=== PATIENT | female | born 1995 | race Caucasian/White ===

== ENCOUNTER 2018-08-05 13:19 | Outpatient (CLI) | payer MEDICAID ==
[~2018-08-05] VITALS: Ht 160 cm; Wt 109.0 kg
--- NOTE | 2018-08-05 13:28 | NUR ---
JOESPH EARLY presented to unit via AMBULATORY from ED, accompanied by S/O, with c/o LEAKING FLUID,NAUSEA. JOESPH EARLY weighed, gowned, voided, and to bed. EFHM and TOCO applied, VS taken. JOESPH EARLY oriented to bed controls, call light, TV, heat, and A/C controls.
[2018-08-05 13:46] VITALS: BP 122/71
[2018-08-05] MEDS ORDERED: SERT50TA2 PO (13:58)
[2018-08-05] MEDS ORDERED: PREN-37 PO (13:58)
[2018-08-05 14:56] LABS: BILIRUBIN,URINE NEGATIVE (NEGATIVE); CLARITY,URINE CLEAR; COLOR,URINE YELLOW; GLUCOSE, URINE (UA) NEGATIVE (NEGATIVE); KETONES,URINE NEGATIVE (NEGATIVE); LEUKOCYTE ESTERASE ,URINE 3+ (NEGATIVE); NITRITE,URINE NEGATIVE (NEGATIVE); PH,URINE 6.5 (5-9); PROTEIN,URINE NEGATIVE (NEGATIVE); UROBILINOGEN,URINE NORMAL (NORMAL)
[2018-08-05 15:14] LABS: BACTERIA,URINE TRACE /HPF; RBC,URINE 0-2 /HPF
--- NOTE | 2018-08-05 15:22 | NUR ---
DR. HINTON NOTIFIED OF PT'S ARRIVAL, 22 Y/O, [id number], 35-3/7 WKS, C/O LEAKING & NAUSEA, AMNIO NEG, SVE, REVIEW OF STRIP, UA RESULTS. NEW ORDERS RECEIVED.
--- NOTE | 2018-08-05 15:23 | NUR ---
REFER TO LABOR FLOW SHEET.
--- NOTE | 2018-08-05 15:37 | NUR ---
ROOM SERVICE DELIVERED TRAY TO PT.
--- NOTE | 2018-08-05 15:55 | NUR ---
DISCHARGE INSTRUCTIONS PROVIDED AND REVIEWED WITH PT, PT VERBALIZES UNDERSTANDING AND DENIES ANY QUESTIONS AT THIS TIME. PAPER SIGNED.
--- NOTE | 2018-08-05 15:56 | NUR ---
PT DISCHARGED FROM [facility] TO PERSONAL AUTO VIA AMBULATORY IN STABLE CONDITION ACC BY S/O.
--- NOTE | 2018-08-08 12:48 | Physician Query-Final Dx ---
BOO JEREZ 08/08/18 1248: Final Diagnosis Give Final Diagnosis Please give Final Diagnosis Dr Gillespie Please give a final diagnosis and please include the weeks of gestation thank you LEXI GILLESPIE MD 08/14/18 1832: Final Diagnosis Give Final Diagnosis Third Trimester 35 week gestation Leaking fluid Vaginal discharge BOO JEREZ Aug 08, 2018 12:48 LEXI GILLESPIE MD Aug 14, 2018 18:32
== END 2018-08-05 15:56 | disposition home or self-care (01) ==
LOC: WSo 13:19 → LDRP 13:19 → WSo 15:56
PROVIDERS: ATTEND Family Medicine
DX: O99.89 Other specified diseases and conditions complicating pregnancy, childbirth and the puerperium (principal); N89.8 Other specified noninflammatory disorders of vagina; Z3A.35 35 weeks gestation of pregnancy
CPT/HCPCS: 81000; 99213

== ENCOUNTER 2018-08-29 19:05 | Inpatient (IN) | payer MEDICAID ==
[~2018-08-29] VITALS: Ht 160 cm; Wt 113.4 kg
[~2018-08-29 19:05] MED LIST: PREN-37 PO; SERT50TA2 PO
--- NOTE | 2018-08-29 19:05 | NUR ---
JOESPH EARLY presented to unit via AMBULATORY from ED, accompanied by S/O, with c/o INDUCTION. JOESPH EARLY weighed, gowned, voided, and to bed. EFHM and TOCO applied, VS taken. JOESPH EARLY oriented to bed controls, call light, TV, heat, and A/C controls. Assessments to follow per JIMMY TODD.
--- OUTSIDE RECORDS SUMMARY | 2018-08-29 19:14 | XMS REPORT ---
Author Author INFANTEJAMESON Martin Organization [facility] Address [address] [place] [address] Care Team Providers Care Instrument Maker Name Role Phone JAMESON INFANTE Unavailable PROBLEMS Unknown Problems ALLERGIES Substance Reaction Event Type Date Status Amoxicillin rash Drug Allergy May, Active ENCOUNTERS Encounter Location Date Diagnosis [address] [address] Jun, [address] [address] May, [address] [address] May, Supervision of other normal Z34.80 and 22 weeks gestation of Z3A.[address] [address] Apr, Supervision of other normal Z34.80 and 18 weeks gestation of Z3A.[address] [address] Apr, Supervision of other normal Z34.80 and 18 weeks gestation of Z3A.18 [facility] [id number] [address] Mar, [facility] [id number], [place] [address] Mar, Other viral agents as the cause of diseases classified elsewhere B97.89 and Acute upper respiratory infection, unspecified J06.9 [facility] [id number] [address] Dec, [facility] [id number] [address] Mar, IMMUNIZATIONS No Known Immunizations SOCIAL HISTORY Never Assessed REASON FOR VISIT 4 WEEK FU PLAN OF CARE Activity Details Follow Up 4 Weeks Reason:OBV VITAL SIGNS Height 63 in 2018-05-08 Weight 224 lbs 2018-05-08 BMI 39.68 kg/m2 2018-05-08 Blood pressure systolic 116 mmHg 2018-05-08 Blood pressure diastolic 60 mmHg 2018-05-08 MEDICATIONS Medication Instructions Dosage Frequency Start Date End Date Duration Status Acyclovir 5 % Externally Five times a day 1 application to affected area 4 day(s) Unknown 28-0.8 MG Orally Once a day 1 tablet 24h 30 day(s) Active RESULTS No Results PROCEDURES No Known procedures INSTRUCTIONS MEDICATIONS ADMINISTERED No Known Medications MEDICAL (GENERAL) HISTORY Type Description Date Medical History attention deficit disorder Medical History Implanon in place Medical History acne Medical History depression Medical History morbid obesity Medical History routine follow-up Surgical History bladder surgery Surgical History tonsillectomy Surgical History myringotomy with ventilating tube Surgical History tympanostomy 1 Surgical History caps put on teeth 5 Hospitalization History childbirth only
--- OUTSIDE RECORDS SUMMARY | 2018-08-29 19:14 | XMS REPORT ---
Author Author NARESHJAMESON Organization [facility] Address [address] [place] [address] Care Team Providers Care Molecular Biology Director Name Role Phone JAMESON INFANTE Unavailable PROBLEMS Unknown Problems ALLERGIES No Information ENCOUNTERS Encounter Location Date Diagnosis [address] [address] Sep, [address] [address] Sep, [address] [address] Aug, [address] [address] Aug, [address] [address] Aug, [address] [address] July, [address] [address] July, [address] [address] July, Supervision of other normal Z34.80 ; Morbid obesity E66.01 and 33 weeks gestation of Z3A.[address] [address] Jun, Supervision of other normal Z34.80 ; Morbid obesity E66.01 ; 30 weeks gestation of Z3A.30 and Encounter for immunization Z23 [address] [address] Jun, Supervision of other normal Z34.80 ; 29 weeks gestation of Z3A.29 and Need for rhogam due to Rh negative mother Z29.[address] [address] Jun, [facility] NICOLE WANG [address] [address] Jun, Supervision of other normal Z34.80 ; Morbid obesity E66.01 and 26 weeks gestation of Z3A.26 [facility] [address] [address] May, [facility] NICOLE WANG [address] [address] May, Supervision of other normal Z34.80 and 22 weeks gestation of Z3A.22 [facility] NICOLE WANG [address] [address] Apr, Supervision of other normal Z34.80 and 18 weeks gestation of Z3A.18 [facility] NICOLE WANG [address] [address] Apr, Supervision of other normal Z34.80 and 18 weeks gestation of Z3A.18 [facility] [id number], [place] [address] Mar, [facility] [id number], [place] [address] Mar, Other viral agents as the cause of diseases classified elsewhere B97.89 and Acute upper respiratory infection, unspecified J06.9 [facility] [id number], [place] [address] Dec, [facility] [id number] [place] [address] Mar, IMMUNIZATIONS No Known Immunizations SOCIAL HISTORY Never Assessed REASON FOR VISIT FYI PLAN OF CARE VITAL SIGNS MEDICATIONS Unknown Medications RESULTS No Results PROCEDURES No Known procedures [...]
--- OUTSIDE RECORDS SUMMARY | 2018-08-29 19:14 | XMS REPORT | Continuity of Care Document ---
Author Organization Unknown Address Unknown Allergies There is no data. Medications There is no data. Problems There is no data. Procedures There is no data. Results Test Result Range GLUCOSE MARI 1 HOUR - 06/19/18 15:13 GLUCOSE, POSTPRANDIAL/ 1 HOUR 115 mg/dL See Note: CBC - 06/19/18 15:13 WHITE BLOOD CELL COUNT 16.3 Thousand/uL 3.8-10.8 RED BLOOD CELL COUNT 4.10 Million/uL 3.80-5.10 HEMOGLOBIN 11.8 g/dL 11.7-15.5 HEMATOCRIT 35.4 % 35.0-45.0 MCV 86.3 fL 80.0-100.0 MCH 28.8 pg 27.0-33.0 MCHC 33.3 g/dL 32.0-36.0 RDW 12.8 % 11.0-15.0 PLATELET COUNT 287 Thousand/uL 140-400 MPV 11.6 fL 7.5-12.5 ABSOLUTE NEUTROPHILS 36736 cells/uL 6572-0101 ABSOLUTE LYMPHOCYTES 2054 cells/uL 850-3900 ABSOLUTE MONOCYTES 962 cells/uL 200-950 ABSOLUTE EOSINOPHILS 98 cells/uL 15-500 ABSOLUTE BASOPHILS 65 cells/uL 0-200 NEUTROPHILS 80.5 % NRG LYMPHOCYTES 12.6 % NRG MONOCYTES 5.9 % NRG EOSINOPHILS 0.6 % NRG BASOPHILS 0.4 % NRG ANTIBODY SCREEN - 06/19/18 15:13 ANTIBODY SCREEN, RBC W/REFL ID, TITER AND AG NO ANTIBODIES DETECTED NRG SUSCEPTIBILITY, AEROBIC BACTERIUM - 08/15/18 11:47 SUSCEPTIBILITY, AEROBIC BACTERIUM SEE NOTE NRG TEST AUTHORIZATION - 08/15/18 11:47 TEST NAME: SUSCEPTIBILITY, AEROBIC NRG TEST CODE: [id number] NRG CLIENT CONTACT: YANA ROBERSON NRG REPORT ALWAYS MESSAGE SIGNATURE NRG COMMENT NRG Encounters ACCT No. Visit Date/Time Discharge Status Pt. Type Provider Facility Loc./Unit Complaint [id number] 08/28/2018 13:15:00 ACT Outpatient JAMESON INFANTE [facility] [id number] 08/15/2018 11:15:00 Document Registration [id number] 06/19/2018 14:15:00 Document Registration
--- OUTSIDE RECORDS SUMMARY | 2018-08-29 19:14 | XMS REPORT ---
Author Author TERELL VERMA [facility] Address [address] [place] [address] Care Team Providers Care Credit Processor Name Role Phone TERELL VERMA Unavailable PROBLEMS Unknown Problems ALLERGIES Substance Reaction Event Type Date Status Amoxicillin rash Drug Allergy Mar, Active SOCIAL HISTORY No smoking Hx information available PLAN OF CARE VITAL SIGNS Height 63 in 2016-03-13 Weight 207 lbs 2016-03-13 Temperature 98 degrees Fahrenheit 2016-03-13 Heart Rate 86 bpm 2016-03-13 Respiratory Rate 16 2016-03-13 BMI 36.66 kg/m2 2016-03-13 Blood pressure systolic 118 mmHg 2016-03-13 Blood pressure diastolic 68 mmHg 2016-03-13 MEDICATIONS No Known Medications RESULTS No Results PROCEDURES Procedure Date Ordered Related Diagnosis Body Site Office Visit, Est Pt., Level 3 Mar 13, 2016 IMMUNIZATIONS No Known Immunizations
[2018-08-29] MEDS ORDERED: D5 LR IV SOLUTION 1,000 ML IV ONE (19:22)
[2018-08-29] MEDS ORDERED: MINERAL OIL CONCENTRATE 99.9% 15 ML UDC TOP PRN (19:30)
[2018-08-29] MEDS ORDERED: VANCOMYCIN INJECTION 1,000 MG in NS (IVPB) 250 ML IV SCH (19:30)
[2018-08-29] MEDS ORDERED: fentaNYL INJECTION 100 MCG/2 ML AMP IVP PRN (19:30)
[2018-08-29] MEDS: D5 LR IV SOLUTION 1,000 ML IV SCH (19:35)
[2018-08-29] MEDS ORDERED: LACTATED RINGERS 1,000 ML IV SCH (19:41)
--- NOTE | 2018-08-29 19:44 | NUR ---
This RN called Eliazar, pharmacist, regarding message received on emar to not administer Vacomycin. Eliazar states dose is not enough for patient weight. Pharmacist to redose.
[2018-08-29] MEDS ORDERED: TERBUTALINE INJ 1 MG/ML (BRETHINE) AMP SC PRN (19:45)
[2018-08-29 19:55] LABS: BASOPHILS % (AUTO) 0 % (0-10); EOSINOPHILS # (AUTO) 0.1 10^3/uL (0.0-0.3); EOSINOPHILS % (AUTO) 1 % (0-10); HEMATOCRIT 35 % (35-52); HEMOGLOBIN 11.1 G/DL (11.5-16.0); LYMPHOCYTES # (AUTO) 2.4 X 10^3 (1.0-4.0); LYMPHOCYTES % (AUTO) 15 % (12-44); MEAN CORPUSCULAR HEMOGLOBIN 27 PG (25-34); MEAN CORPUSCULAR HGB CONC 32 G/DL (32-36); MEAN CORPUSCULAR VOLUME 85 FL (80-99); MEAN PLATELET VOLUME 12.1 FL (7.4-10.4); MONOCYTES # (AUTO) 1.7 X 10^3 (0.0-1.0); MONOCYTES % (AUTO) 10 % (0-12); NEUTROPHILS # (AUTO) 11.9 X 10^3 (1.8-7.8); NEUTROPHILS % (AUTO) 74 % (42-75); PLATELET COUNT 258 10^3/uL (130-400); RED CELL DISTRIBUTION WIDTH 14.7 % (10.0-14.5)
[2018-08-29 20:00] VITALS: BP 118/84
[2018-08-29] MEDS ORDERED: VANCOMYCIN 750 MG/VIAL IV ONE (20:24)
[2018-08-29] MEDS ORDERED: NS IV 500 ML 500 ML ONE (20:25)
[2018-08-29] MEDS: VANCOMYCIN 1500 MG/NS 500 ML IVPB IV SCH ×2 (20:58)
[2018-08-29 21:05] VITALS: BP 117/67
[2018-08-29] MEDS: MISOPROSTOL 100 MCG (CYTOTEC) TAB PV SCH (21:05)
[2018-08-29 21:40] VITALS: BP 116/58
[2018-08-30] VITALS (62 sets, daily range): BP systolic 93–181; BP diastolic 49–98
[2018-08-30] MEDS: CATHETER FLUSH 10 ML SYR IV SCH ×3 (00:41→16:11)
[2018-08-30] MEDS: MISOPROSTOL 100 MCG (CYTOTEC) TAB PV SCH ×5 (00:57→16:10)
[2018-08-30] MEDS: D5 LR IV SOLUTION 1,000 ML IV SCH ×2 (03:39→13:15)
[2018-08-30] MEDS ORDERED: OXYTOCIN/NORMAL SALINE 500 ML IV SCH (05:00)
[2018-08-30] MEDS: VANCOMYCIN 1500 MG/NS 500 ML IVPB IV SCH ×2 (07:53)
[2018-08-30] MEDS ORDERED: SUFENTA 0.6MCG/ML BUPIVA 0.125 100 ML ONE (09:35)
--- NOTE | 2018-08-30 09:44 | Labor Progress Note ---
Labor Progress Note Labor Progress Note Date Seen by Provider: Aug 30, 2018 Time Seen by Provider: 09:30 Subjective: Pt denies complaints. Objective: Cervical exam: 3/50/-3 Consistency: mid Position: mid Presentation: vertex heart tones: 140 beats per minute, minimal variability, no decels Tocometer: 4-5 ctx/10 minutes Assessment/Plan: Casi Garza is a 22 /Para / ,Gestational Age (wks)39 here for IOL CEFM/TOCO Category II tracing due to minimal variability, no decels however, oxygen placed and will monitor closely AROM done with FSE with clear fluid, FSE not reading well, continue CEFM/toco. Anesthesia: desires epidural Anticipate vaginal delivery. Dr. Dent updated. Vitals - Labs Vital Signs - I&O Vital Signs Date Time Temp Pulse Resp B/P (MAP) Pulse Ox O2 Delivery O2 Flow Rate FiO2 08/30/18 08:00 79 18 117/64 (81) Room Air 08/30/18 07:45 08/30/18 07:30 77 18 108/56 (73) Room Air 08/30/18 07:15 73 18 117/66 (83) Room Air 08/30/18 07:00 20 Room Air 08/30/18 06:45 83 20 105/56 (72) Room Air 08/30/18 06:30 78 20 115/68 (84) Room Air 08/30/18 06:15 88 20 106/64 (78) Room Air 08/30/18 06:00 83 20 98/57 (71) Room Air 08/30/18 05:45 77 20 102/57 (72) Room Air 08/30/18 05:30 80 20 111/58 (75) Room Air 08/30/18 05:15 83 20 101/54 (70) Room Air 08/30/18 04:36 98.2 91 20 101/60 (74) Room Air 08/30/18 01:30 86 20 93/49 (64) Room Air 08/30/18 01:05 82 20 117/61 (79) Room Air 08/30/18 01:00 98.8 88 20 100/57 (71) Room Air 08/29/18 21:40 85 20 116/58 (77) Room Air 08/29/18 21:05 81 20 117/67 (84) Room Air 08/29/18 20:00 97.9 115 20 118/84 (95) Room Air I & O 08/30/18 07:00 Intake Total 2014 ml Balance 2014 ml Labs Laboratory Tests 08/29/18 19:35: White Blood Count 16.0H, Red Blood Count 4.07L, Hemoglobin 11.1L, Hematocrit 35, Mean Corpuscular Volume 85, Mean Corpuscular Hemoglobin 27, Mean Corpuscular Hemoglobin Concent 32, Red Cell Distribution Width 14.7H, Platelet Count 258, Me an Platelet Volume 12.1H, Neutrophils (%) (Auto) 74, Lymphocytes (%) (Auto) 15, Monocytes (%) (Auto) 10, Eosinophils (%) (Auto) 1, Basophils (%) (Auto) 0, Neutrophils # (Auto) 11.9H, Lymphocytes # (Auto) 2.4, Monocytes # (Auto) 1.7H, Eosinophils # (Auto) 0.1, Basophils # (Auto) 0.0 ANTONETTE LIVINGSTON MD Aug 30, 2018 09:44
[2018-08-30] MEDS ORDERED: fentaNYL INJECTION 100 MCG/2 ML AMP ONE (10:00)
[2018-08-30] MEDS ORDERED: LACTATED RINGERS 1,000 ML IV ONE ×2 (11:42)
[2018-08-30] MEDS ORDERED: NALOXONE 0.4 MG/ML 1 ML (NARCAN) VIAL IV PRN (11:45)
[2018-08-30] MEDS ORDERED: EPIDURAL (SUFENTA 0.6MCG/ML BUPIVA 0.125%) 100 ML BAG EPI PRN (11:45)
[2018-08-30] MEDS ORDERED: LIDOCAINE PF 2% 5 ML (XYLOCAINE) VIAL ONE (11:46)
[2018-08-30] MEDS ORDERED: BUPIVACAINE 0.25% 30 ML (SENSORCAINE) VIAL ONE (11:46)
[2018-08-30] MEDS: ONDANSETRON 4 MG/2 ML (SDV) Z0FRAN IV PRN ×2 (12:19→16:52)
--- NOTE | 2018-08-30 12:55 | History & Physical-OB ---
OB - Chief Complaint & HPI Date/Time Date of Admission: Date of Admission: Aug 29, 2018 at 19:05 Date seen by a Provider: Aug 30, 2018 Time Seen by a Provider: 11:20 Chief Complaint/History OB-Reason for Admission/Chief: Induction of Labor Hx : 3 Hx Para: 1 Expected Date of Delivery: Sep 05, 2018 Gestational Age in Weeks: 39 Gestational Age in Days: 0 Indication for induction: maternal discomfort Admission Nurse Assessment Rev: Yes Allergies and Home Medications Allergies Coded Allergies: amoxicillin (Verified Allergy, Mild, Rash, 08/05/18) Home Medications Vit/Iron Fumarate/FA 1 Each Tablet, 1 EACH PO DAILY, (Reported) Sertraline HCl 50 Mg Tablet, 50 MG PO DAILY, (Reported) Patient Home Medication List Home Medication List Reviewed: Yes OB - History Hx of Present Care: Yes Ultrasounds: Normal mid trimester US Obstetrical Complications: None Medical Complications: None Delivery History Adverse Rxn to Tranfusion: No Patient Past Medical History previously healthy Social History/Family History Alcohol Use: Denies Use Recreational Drug Use: No OB - Admission Exam Physical Exam Vitals: Vital Signs 08/30/18 08/30/18 08/30/18 08/30/18 09:30 10:45 10:55 11:00 Temp 98.5 Pulse 89 Resp 18 B/P (MAP) 127/61 (83) Pulse Ox 100 O2 Delivery Non Rebreather O2 Flow Rate 15.00 HEENT: NCAT Heart: Rhythm Normal Lungs: Clear Abdomen: Gravid Extremities: Normal Reflexes: Normal Cervical Dilatation: 3cm Effacement: 75% Station: -3 Membranes: Ruptured Amniotic Fluid: Clear Heart Rate: 130's Accelerations: No Accelerations Decelerations: Variable Decelerations Short Term Variability: Present Sustainable Design Coordinator Variability: Average (6-25) Contractions on Admission: < 5 Minutes Apart Labs Laboratory Tests Test 08/29/18 19:35 Range/Units White Blood Count 16.0 H 4.3-11.0 10^3/uL Red Blood Count 4.07 L 4.35-5.85 10^6/uL Hemoglobin 11.1 L 11.5-16.0 G/DL Hematocrit 35 35-52 % Mean Corpuscular Volume 85 80-99 FL Mean Corpuscular Hemoglobin 27 25-34 PG Mean Corpuscular Hemoglobin Concent 32 32-36 G/DL Red Cell Distribution Width 14.7 H 10.0-14.5 % Platelet Count 258 130-400 10^3/uL Mean Platelet Volume 12.1 H 7.4-10.4 FL Neutrophils (%) (Auto) 74 42-75 % Lymphocytes (%) (Auto) 15 12-44 % Monocytes (%) (Auto) 10 0-12 % Eosinophils (%) (Auto) 1 0-10 % Basophils (%) (Auto) 0 0-10 % Neutrophils # (Auto) 11.9 H 1.8-7.8 X 10^3 Lymphocytes # (Auto) 2.4 1.0-4.0 X 10^3 Monocytes # (Auto) 1.7 H 0.0-1.0 X 10^3 Eosinophils # (Auto) 0.1 0.0-0.3 10^3/uL Basophils # (Auto) 0.0 0.0-0.1 10^3/uL OB - Assessment/Plan/Diagnosis Assessment Assessment: induction of labor Admission Dx Labor. Admission Status: Inpatient Order (span 2 midnights) Reason for Inpatient Admission: Induction of labor at 39 weeks. Plan Plan: Induction Induction Method: per Pitocin Protocol JAMESON INFANTE MD Aug 30, 2018 12:55
--- NOTE | 2018-08-30 14:11 | Labor Progress Note ---
Labor Progress Note Labor Progress Note Date Seen by Provider: Aug 30, 2018 Time Seen by Provider: 14:08 Subjective: Pt denies complaints. Objective: SVE 3.5/80/-2 Assessment/Plan: Casi Garza is a (22 /Para 3 / 1,Gestational Age (wks)39 here for [induction of labor]. CEFM/TOCO Continue pitocin/[insert IUPC to monitor MVU's as patient has not changed] Anesthesia: [epidural] Start amnioinfusion for variables with contractions. Will monitor. Updated patient with status and slow progress as well as variable decelerations. If no reasonable change or if FM worsens, will consider . Vitals - Labs Vital Signs - I&O Vital Signs Date Time Temp Pulse Resp B/P (MAP) Pulse Ox O2 Delivery O2 Flow Rate FiO2 08/30/18 12:45 86 18 118/81 (93) 98 Room Air 08/30/18 12:30 82 18 123/71 (88) 98 Room Air 08/30/18 12:15 92 18 120/81 (94) 98 Room Air 08/30/18 12:00 97.9 92 18 111/71 (84) 98 Room Air 08/30/18 11:45 77 18 103/53 (70) 98 Room Air 08/30/18 11:30 92 18 125/80 (95) 98 Room Air 08/30/18 11:15 100 Non Rebreather 15.00 08/30/18 11:00 Non Rebreather 15.00 08/30/18 10:55 89 18 127/61 (83) Non Rebreather 15.00 08/30/18 10:50 87 18 134/63 (86) Non Rebreather 15.00 08/30/18 10:45 93 18 128/71 (90) 100 Non Rebreather 15.00 08/30/18 10:40 86 18 158/74 (102) Non Rebreather 15.00 08/30/18 10:36 90 18 131/79 (96) 99 Non Rebreather 15.00 08/30/18 10:33 83 18 120/73 (89) Non Rebreather 15.00 08/30/18 10:30 90 18 133/81 (98) 100 Non Rebreather 15.00 08/30/18 10:25 95 18 136/80 (98) Non Rebreather 15.00 08/30/18 10:20 84 18 134/82 (99) 100 Non Rebreather 15.00 08/30/18 10:15 98 18 134/75 (94) 100 Non Rebreather 15.00 08/30/18 10:10 113 156/81 (106) 08/30/18 10:00 86 18 128/76 (93) Non Rebreather 15.00 08/30/18 09:45 90 18 135/83 (100) Non Rebreather 15.00 08/30/18 09:30 98.5 115 18 169/98 (121) Non Rebreather 15.00 08/30/18 09:15 80 18 130/84 (99) Room Air 08/30/18 09:00 Room Air 08/30/18 08:45 95 18 131/78 (95) Room Air 08/30/18 08:30 18 117/66 (83) Room Air 08/30/18 08:15 81 18 113/65 (81) Room Air 08/30/18 08:00 79 18 117/64 (81) Room Air 08/30/18 07:45 08/30/18 07:30 77 18 108/56 (73) Room Air 08/30/18 07:15 73 18 117/66 (83) Room Air 08/30/18 07:00 20 Room Air 08/30/18 06:45 83 20 105/56 (72) Room Air 08/30/18 06:30 78 20 115/68 (84) Room Air 08/30/18 06:15 88 20 106/64 (78) Room Air 08/30/18 06:00 83 20 98/57 (71) Room Air 08/30/18 05:45 77 20 102/57 (72) Room Air 08/30/18 05:30 80 20 111/58 (75) Room Air 08/30/18 05:15 83 20 101/54 (70) Room Air 08/30/18 04:36 98.2 91 20 101/60 (74) Room Air 08/30/18 01:30 86 20 93/49 (64) Room Air 08/30/18 01:05 82 20 117/61 (79) Room Air 08/30/18 01:00 98.8 88 20 100/57 (71) Room Air 08/29/18 21:40 85 20 116/58 (77) Room Air 08/29/18 21:05 81 20 117/67 (84) Room Air 08/29/18 20:00 97.9 115 20 118/84 (95) Room Air I & O 08/30/18 07:00 Intake Total 2014 ml Balance 2014 ml Labs Laboratory Tests 08/29/18 19:35: White Blood Count 16.0H, Red Blood Count 4.07L, Hemoglobin 11.1L, Hematocrit 35, Mean Corpuscular Volume 85, Mean Corpuscular Hemoglobin 27, Mean Corpuscular Hemoglobin Concent 32, Red Cell Distribution Width 14.7H, Platelet Count 258, Mean Platelet Volume 12.1H, Neutrophils (%) (Auto) 74, Lymphocytes (%) (Auto) 15, Monocytes (%) (Auto) 10, Eosinophils (%) (Auto) 1, Basophils (%) (Auto) 0, Neutrophils # (Auto) 11.9H, Lymphocytes # (Auto) 2.4, Monocytes # (Auto) 1.7H, Eosinophils # (Auto) 0.1, Basophils # (Auto) 0.0 JAMESON INFANTE MD Aug 30, 2018 14:11
[2018-08-30] MEDS ORDERED: LACTATED RINGERS 1,000 ML IV SCH (14:15)
[2018-08-30] MEDS ORDERED: LIDOCAINE/EPI 2% 1:200,00 (XYLOCAINE) 10 ML VIAL ONE (17:23)
--- NOTE | 2018-08-30 17:43 | NUR ---
Spontaneous vaginal delivery of placenta with cord attached. fundal massage per Dr prince. pitocin increased to 999ml/hr as ordered. 1745 ffu/1 with lt-mod rubra noted, no clots expressed. perineum examined per dr prince with right perineal tear repaired. 1800 ffu/0 with lt-mod rubra noted, no clots expressed. vss 1810 pitocin infusing second bag 1815 ffu0 with lt-mod rubra noted, no clots expressed. vss. 1830 ffu/0 with lt-mod rubra noted, no clots expressed. vss. Addendum: 08/30/18 at 1849 by SHAMAR STEPHEN RN 1800 epidural infusion stopped and epidural catheter out with tip intact.
[2018-08-30] MEDS: OXYTOCIN/NORMAL SALINE 500 ML IV SCH ×2 (18:10→18:44)
[2018-08-30] MEDS ORDERED: TETANUS,DIPTH,PERTUSS P/F (BOOSTRIX) 0.5 ML VIAL IM ONE (18:30)
[2018-08-30] MEDS ORDERED: BENZOCAINE/MENTHOL (DERMOPLAST) 56 ML CAN TP PRN (18:30)
[2018-08-30] MEDS ORDERED: MEASLES,MUMPS,RUBELLA 1 EA INJ SQ ONE (18:30)
[2018-08-30] MEDS ORDERED: WITCH HAZEL(TUCKS) 40 EA JAR TOP PRN (18:30)
--- NOTE | 2018-08-30 18:32 | OB Labor & Delivery Record ---
Vag Delivery Note Vag Delivery Note Date of Delivery: 08/30/18 Preoperative Diagnosis: Casi Garza is a (22 /Para 3 / 1,Gestational Age (wks)39with [] Postoperative Diagnosis: Same Surgeon: JAMESON INFANTE Dip Unit Operator: [] Anesthesia: [epidural] Delivery Type: [] Findings: [] Viable [female] , apgars [8/9], weight [8 pounds 2 ounces] Lacerations: Intact placenta with 3 vessel cord. No nuchal cord, body cord. Estimated Blood Loss: [250] ml Complications: None Condition: Stable Description of Procedure: The patient is a 22 year old female who presented [for induction]. She was admitted and informed consent was obtained. Her labor course was remarkable for [persistent OP with variable decelerations] She progressed to complete dilatation and began to push. She was then set up for delivery. The 's head was delivered atraumatically in the [OA] position. The shoulders and remainder of the infant's body were then delivered with Sharon maneuver and gentle traction. Upon delivery, the head was held below the level of the perineum and the mouth and nares were bulb suctioned. The cord was doubly clamped and cut after 60 seconds on maternal abdomen. An intact placenta with 3-vessel cord delivered via Mery and there was found to be minimal bleeding.~ Vigorous fundal massage was performed and the fundus was found to be firm. IV oxytocin was given. Examination of the vagina and perineum revealed a [small right labial] laceration repaired in the usual fashion with 3-0 vicryl suture. Following the repair, sponge, instrument and needle counts were correct. Mom and baby were both in stable condition in the labor suite. Vitals - Labs Vital Signs - I&O Vital Signs Date Time Temp Pulse Resp B/P (MAP) Pulse Ox O2 Delivery O2 Flow Rate FiO2 08/30/18 17:00 105 18 132/82 (99) Room Air 08/30/18 16:45 97.9 93 18 127/76 (93) Room Air 08/30/18 16:30 93 18 121/83 (96) Room Air 08/30/18 16:15 97 18 129/77 (94) Room Air 08/30/18 16:00 102 18 124/83 (97) Room Air 08/30/18 15:45 95 18 126/80 (95) Room Air 08/30/18 15:30 Room Air 08/30/18 15:15 91 18 128/73 (91) Room Air 08/30/18 15:00 97 18 181/83 (115) Room Air 08/30/18 14:45 97.3 88 18 111/62 (78) Non Rebreather 15.00 08/30/18 14:30 83 18 124/76 (92) Non Rebreather 15.00 08/30/18 14:15 92 18 111/64 (80) Non Rebreather 15.00 08/30/18 14:00 83 18 104/57 (73) Non Rebreather 15.00 08/30/18 13:45 76 18 124/70 (88) Non Rebreather 15.00 08/30/18 13:30 78 18 111/65 (80) Non Rebreather 15.00 08/30/18 13:15 76 18 111/65 (80) Non Rebreather 15.00 08/30/18 13:00 85 18 116/57 (76) 98 Room Air 08/30/18 12:45 86 18 118/81 (93) 98 Room Air 08/30/18 12:30 82 18 123/71 (88) 98 Room Air 08/30/18 12:15 92 18 120/81 (94) 98 Room Air 08/30/18 12:00 97.9 92 18 111/71 (84) 98 Room Air 08/30/18 11:45 77 18 103/53 (70) 98 Room Air 08/30/18 11:30 92 18 125/80 (95) 98 Room Air 08/30/18 11:15 100 Non Rebreather 15.00 08/30/18 11:00 Non Rebreather 15.00 08/30/18 10:55 89 18 127/61 (83) Non Rebreather 15.00 08/30/18 10:50 87 18 134/63 (86) Non Rebreather 15.00 08/30/18 10:45 93 18 128/71 (90) 100 Non Rebreather 15.00 08/30/18 10:40 86 18 158/74 (102) Non Rebreather 15.00 08/30/18 10:36 90 18 131/79 (96) 99 Non Rebreather 15.00 08/30/18 10:33 83 18 120/73 (89) Non Rebreather 15.00 08/30/18 10:30 90 18 133/81 (98) 100 Non Rebreather 15.00 08/30/18 10:25 95 18 136/80 (98) Non Rebreather 15.00 08/30/18 10:20 84 18 134/82 (99) 100 Non Rebreather 15.00 08/30/18 10:15 98 18 134/75 (94) 100 Non Rebreather 15.00 08/30/18 10:10 113 156/81 (106) 08/30/18 10:00 86 18 128/76 (93) Non Rebreather 15.00 08/30/18 09:45 90 18 135/83 (100) Non Rebreather 15.00 08/30/18 09:30 98.5 115 18 169/98 (121) Non Rebreather 15.00 08/30/18 09:15 80 18 130/84 (99) Room Air 08/30/18 09:00 Room Air 08/30/18 08:45 95 18 131/78 (95) Room Air 08/30/18 08:30 18 117/66 (83) Room Air 08/30/18 08:15 81 18 113/65 (81) Room Air 08/30/18 08:00 79 18 117/64 (81) Room Air 08/30/18 07:45 08/30/18 07:30 77 18 108/56 (73) Room Air 08/30/18 07:15 73 18 117/66 (83) Room Air 08/30/18 07:00 20 Room Air 08/30/18 06:45 83 20 105/56 (72) Room Air 08/30/18 06:30 78 20 115/68 (84) Room Air 08/30/18 06:15 88 20 106/64 (78) Room Air 08/30/18 06:00 83 20 98/57 (71) Room Air 08/30/18 05:45 77 20 102/57 (72) Room Air 08/30/18 05:30 80 20 111/58 (75) Room Air 08/30/18 05:15 83 20 101/54 (70) Room Air 08/30/18 04:36 98.2 91 20 101/60 (74) Room Air 08/30/18 01:30 86 20 93/49 (64) Room Air 08/30/18 01:05 82 20 117/61 (79) Room Air 08/30/18 01:00 98.8 88 20 100/57 (71) Room Air 08/29/18 21:40 85 20 116/58 (77) Room Air 08/29/18 21:05 81 20 117/67 (84) Room Air 08/29/18 20:00 97.9 115 20 118/84 (95) Room Air I & O 08/30/18 07:00 Intake Total 2014 ml Balance 2014 ml Labs Laboratory Tests 08/29/18 19:35: White Blood Count 16.0H, Red Blood Count 4.07L, Hemoglobin 11.1L, Hematocrit 35, Mean Corpuscular Volume 85, Mean Corpuscular Hemoglobin 27, Mean Corpuscular Hemoglobin Concent 32, Red Cell Distribution Width 14.7H, Platelet Count 258, Mean Platelet Volume 12.1H, Neutrophils (%) (Auto) 74, Lymphocytes (%) (Auto) 15, Monocytes (%) (Auto) 10, Eosinophils (%) (Auto) 1, Basophils (%) (Auto) 0, Neutrophils # (Auto) 11.9H, Lymphocytes # (Auto) 2.4, Monocytes # (Auto) 1.7H, Eosinophils # (Auto) 0.1, Basophils # (Auto) 0.0 Shoulder Dystocia Note Shoulder Dystocia Start Time of Delivery of HEAD: 17:39 Time shoulder dystocia called: 17:39 HOB in lowered position: Yes Time of delivery of BODY: 17:39 Positional Maneuvers JAMESON Pitt MD Aug 30, 2018 18:32
--- NOTE | 2018-08-30 18:45 | NUR ---
ffu/0 with moderate rubra noted.
[2018-08-30] MEDS: IBUPROFEN 600 MG (MOTRIN) TAB PO SCH (18:54)
--- NOTE | 2018-08-30 21:45 | NUR ---
Pt ambulates standby to bathroom for pericare and first void since delivery. Pt to wc and tx to pp room 309, oriented to call system and surroundings, pt remains under care of this rn. on back in crib swaddled, no ss distress, needs denied. will cont to monitor.
[2018-08-30] MEDS ORDERED: CATHETER FLUSH 10 ML SYR IV SCH (22:00)
[2018-08-31 00:19] VITALS: BP 105/54
[2018-08-31] MEDS: DOCUSATE SODIUM 100 MG (COLACE) CAP PO SCH ×3 (00:20→23:44)
[2018-08-31] MEDS: IBUPROFEN 600 MG (MOTRIN) TAB PO SCH ×5 (00:20→23:44)
[2018-08-31 05:36] VITALS: BP 107/57
[2018-08-31 05:37] LABS: BASOPHILS % (AUTO) 0 % (0-10); EOSINOPHILS # (AUTO) 0.1 10^3/uL (0.0-0.3); EOSINOPHILS % (AUTO) 1 % (0-10); HEMATOCRIT 30 % (35-52); HEMOGLOBIN 9.6 G/DL (11.5-16.0); LYMPHOCYTES # (AUTO) 1.8 X 10^3 (1.0-4.0); LYMPHOCYTES % (AUTO) 13 % (12-44); MEAN CORPUSCULAR HEMOGLOBIN 28 PG (25-34); MEAN CORPUSCULAR HGB CONC 32 G/DL (32-36); MEAN CORPUSCULAR VOLUME 87 FL (80-99); MEAN PLATELET VOLUME 11.7 FL (7.4-10.4); MONOCYTES # (AUTO) 1.4 X 10^3 (0.0-1.0); MONOCYTES % (AUTO) 9 % (0-12); NEUTROPHILS # (AUTO) 11.3 X 10^3 (1.8-7.8); NEUTROPHILS % (AUTO) 77 % (42-75); PLATELET COUNT 164 10^3/uL (130-400); RED CELL DISTRIBUTION WIDTH 14.8 % (10.0-14.5); WHITE BLOOD COUNT 14.6 10^3/uL (4.3-11.0)
[2018-08-31 08:50] VITALS: BP 130/77
[2018-08-31] MEDS: SERTRALINE 50 MG (ZOLOFT) TABLET PO SCH (08:56)
--- NOTE | 2018-08-31 10:10 | Anesthesia-Regional Post-Op ---
Regional Patient Condition Mental Status: Alert, Oriented x3 Circulation: Same as Pre-Op Headache: Absent Sensation: Full Recovery Motor Block: Absent Post Op Complications Complications None Follow Up Care/Instructions Patient Instructions None needed. Anesthesia/Patient Condition Patient is doing well, no complaints, stable vital signs, no apparent adverse anesthesia problems. No complications reported per nursing. SRI VELA CRNA Aug 31, 2018 10:10
--- NOTE | 2018-08-31 10:45 | NUR ---
Rhogam given in rt hip. Instructed pt if she becomes and miscarries or has she has 72 hrs to receive Rhogam. Pt verbalizes understanding.
[2018-08-31 14:39] VITALS: BP 127/84
--- NOTE | 2018-08-31 16:24 | Progress Note (SOAP) ---
Subjective Subjective/Events-last exam Denies concerns, no dizziness, chest pain, shortness of breath, bleeding decreasing, going well. Review of Systems Date Seen by Provider: Aug 31, 2018 Time Seen by Provider: 10:00 Objective Exam Last Set of Vital Signs Vital Signs Date Time Temp Pulse Resp B/P (MAP) Pulse Ox O2 Delivery O2 Flow Rate FiO2 08/31/18 14:39 97.9 85 18 127/84 (98) 99 Room Air 08/30/18 14:45 15.00 Capillary Refill : I&O l Intake and Output 08/31/18 00:00 Intake Total 5415 ml Output Total 500 ml Balance 4915 ml Intake Oral 900 ml IV Total 4515 ml Output Urine Total 500 ml General: Alert Lungs: Clear to Auscultation Heart: Regular Rate Abdomen: Other (fundus firm below umbilicus) Neuro: Normal Speech Psych/Mental Status: Mental Status NL Results/Procedures Lab Laboratory Tests 08/31/18 05:15: White Blood Count 14.6H, Red Blood Count 3.48L, Hemoglobin 9.6L, Hematocrit 30L, Mean Corpuscular Volume 87, Mean Corpuscular Hemoglobin 28, Mean Corpuscular Hemoglobin Concent 32, Red Cell Distribution Width 14.8H, Platelet Count 164, Mean Platelet Volume 11.7H, Neutrophils (%) (Auto) 77H, Lymphocytes (%) (Auto) 13, Monocytes (%) (Auto) 9, Eosinophils (%) (Auto) 1, Basophils (%) (Auto) 0, Neutrophils # (Auto) 11.3H, Lymphocytes # (Auto) 1.8, Monocytes # (Auto) 1.4H, Eosinophils # (Auto) 0.1, Basophils # (Auto) 0.0 Assessment/Plan Assessment/Plan Assessment & Plan day 1, s/p , doing well. Asymptomatic anemia. Routine care. Clinical Quality Measures DVT/VTE Risk/Contraindication: Risk Factor Score Per Nursin RFS Level Per Nursing on Admit: 2=Moderate ANTONETTE LIVINGSTON MD Aug 31, 2018 16:24
--- NOTE | 2018-08-31 17:30 | NUR ---
Report rec'd from Nguyễn Oliva RN
[2018-08-31 18:20] VITALS: BP 124/77
[2018-08-31 23:45] VITALS: BP 113/73
[2018-09-01 05:50] VITALS: BP 139/103
[2018-09-01] MEDS: IBUPROFEN 600 MG (MOTRIN) TAB PO SCH ×2 (05:50→12:08)
[2018-09-01] MEDS ORDERED: FERR325T18 PO (08:25)
[2018-09-01] MEDS ORDERED: IBUP-844 PO (08:25)
--- NOTE | 2018-09-01 08:28 | Discharge Instructions ---
Discharge Inst-Women's Serv Depart Medications New, Converted or Re-Newed RX: Call to Patients Pharmacy New Medications: Ferrous Sulfate (Ferrous Sulfate) 325 Mg Tablet 325 MG PO DAILY for 30 Days, #30 TAB 0 Refills Ibuprofen (Ibu) 600 Mg Tablet 600 MG PO Q6HR PRN for PAIN-MODERATE, #60 TAB 0 Refills Continued Medications: Vit/Iron Fumarate/FA ( Tablet) 1 Each Tablet 1 EACH PO DAILY, TAB Sertraline HCl (Zoloft) 50 Mg Tablet 50 MG PO DAILY, TAB Follow Up/Instructions Goal/Follow Up: Follow up with Dr. Infante for visit in 6 weeks. Activity Activity: Activity as Tolerated (avoid strenuous activity x 6 weeks) Nothing Inside Vagina: No Douching, No [place], No Tampons Diet Discharge Diet: No Restrictions Symptoms to Report to : Swelling Increased, Bleeding Excessive, Fever Over 101 Degrees F, Pain/Pressure in Chest, Vaginal Bleeding Increase, Cramps in Feet or Legs, Vaginal Discharge Foul, Nausea/Vomiting, Shortness of Breath For Any Problems or Questions: Contact Your Physician Copies To 1: JAMESON INFANTE MD,ANTONETTE Selby MD Sep 01, 2018 08:28
--- NOTE | 2018-09-01 08:29 | Discharge Summary ---
Diagnosis/Chief Complaint Date of Admission Aug 29, 2018 at 19:05 Date of Discharge September 01, 2018 Admission Diagnosis Admission Diagnosis Term intrauterine Discharge Diagnosis s/p spontaneous vaginal delivery asymptomatic anemia Chief Complaint/HPI Chief Complaint/HPI at 39 weeks admitted for elective IOL. Discharge Summary-Simple/Stand Discharge Physical Examination Allergies: Coded Allergies: amoxicillin (Verified Allergy, Mild, Rash, 08/05/18) Vitals & I&Os Vital Sign - Last 12Hours Date Time Temp Pulse Resp B/P (MAP) Pulse Ox O2 Delivery O2 Flow Rate FiO2 09/01/18 05:50 98.2 98 18 139/103 (115) 97 08/31/18 18:20 Room Air 08/30/18 14:45 15.00 General Appearance: Alert, No Acute Distress Respiratory: Clear to Auscultation, Normal Air Movement Cardiovascular: Regular Rate, No Murmurs Abdominal: Other (fundus firm below umbilicus) Neuro: Normal Speech Psych/Mental Status: Mental Status NL Hospital Course See final discharge diagnosis. Labs Laboratory Tests Test 08/31/18 05:15 Range/Units White Blood Count 14.6 H 4.3-11.0 10^3/uL Red Blood Count 3.48 L 4.35-5.85 10^6/uL Hemoglobin 9.6 L 11.5-16.0 G/DL Hematocrit 30 L 35-52 % Mean Corpuscular Volume 87 80-99 FL Mean Corpuscular Hemoglobin 28 25-34 PG Mean Corpuscular Hemoglobin Concent 32 32-36 G/DL Red Cell Distribution Width 14.8 H 10.0-14.5 % Platelet Count 164 130-400 10^3/uL Mean Platelet Volume 11.7 H 7.4-10.4 FL Neutrophils (%) (Auto) 77 H 42-75 % Lymphocytes (%) (Auto) 13 12-44 % Monocytes (%) (Auto) 9 0-12 % Eosinophils (%) (Auto) 1 0-10 % Basophils (%) (Auto) 0 0-10 % Neutrophils # (Auto) 11.3 H 1.8-7.8 X 10^3 Lymphocytes # (Auto) 1.8 1.0-4.0 X 10^3 Monocytes # (Auto) 1.4 H 0.0-1.0 X 10^3 Eosinophils # (Auto) 0.1 0.0-0.3 10^3/uL Basophils # (Auto) 0.0 0.0-0.1 10^3/uL Discharge Instructions to patient/family Please see electronic discharge instructions given to patient. Discharge Medications Reviewed and agree with Discharge Medication list on patient's Discharge Instruction sheet Clinical Quality Measures DVT/VTE Risk/Contraindication: Risk Factor Score Per Nursin RFS Level Per Nursing on Admit: 2=Moderate Copy Copies To 1: JAMESON INFANTE MD, BETHANY N MD Sep 01, 2018 08:28
[2018-09-01 09:43] VITALS: BP 122/89
[2018-09-01] MEDS: SERTRALINE 50 MG (ZOLOFT) TABLET PO SCH (09:45)
[2018-09-01] MEDS: DOCUSATE SODIUM 100 MG (COLACE) CAP PO SCH (09:45)
--- NOTE | 2018-09-01 10:00 | NUR ---
Dr. Briscoe notified of pt c/o burning with urination. Order rec'd for UA with culture
[2018-09-01 15:24] LABS: BILIRUBIN,URINE NEGATIVE (NEGATIVE); CLARITY,URINE CLEAR; COLOR,URINE YELLOW; GLUCOSE, URINE (UA) NEGATIVE (NEGATIVE); KETONES,URINE NEGATIVE (NEGATIVE); LEUKOCYTE ESTERASE ,URINE 1+ (NEGATIVE); NITRITE,URINE NEGATIVE (NEGATIVE); PH,URINE 6 (5-9); PROTEIN,URINE NEGATIVE (NEGATIVE); UROBILINOGEN,URINE 1 MG/DL (NORMAL)
[2018-09-01 15:32] LABS: BACTERIA,URINE TRACE /HPF
[2018-09-01 16:45] VITALS: BP 120/75
--- NOTE | 2018-09-01 16:50 | NUR ---
Discharge instructions explained to pt with copy provided to pt. Pt notified of need to schedule follow up. Offered to call in ibuprofen/iron. Pt requests just iron to be called in to [facility]. Pt verbalizes understanding of instructions, signs to verify. Requests abdominal binder, provided. Pt denies further needs or concerns at this time.
--- NOTE | 2018-09-01 18:25 | NUR ---
Pt ambulates off unit accompanied by RN and infant to private vehicle. All personal belongings taken to vehicle previously by S.O. No s/s of distress noted.
== END 2018-09-01 18:25 | disposition home or self-care (01) | DRG 807 ==
LOC: LDRP 19:05
PROVIDERS: ADMIT Family Medicine; ATTEND Family Medicine
PROC: 10E0XZZ Delivery of Products of Conception, External Approach (ICD-10-PCS; principal; 2018-08-30)
PROC: 0HQ9XZZ Repair Perineum Skin, External Approach (ICD-10-PCS; 2018-08-30)
PROC: 3E0E37Z Introduction of Electrolytic and Water Balance Substance into Products of Conception, Percutaneous Approach (ICD-10-PCS; 2018-08-30)
DX: O76 Abnormality in fetal heart rate and rhythm complicating labor and delivery (principal); O70.0 First degree perineal laceration during delivery; O90.81 Anemia of the puerperium; Z3A.39 39 weeks gestation of pregnancy; Z37.0 Single live birth
CPT/HCPCS: 36415; 81000; 83033; 85025; 86850; 86900; 86901

== ENCOUNTER → 2021-09-26 | Outpatient (CLI) | payer BC ==
[~2021-09-26] MED LIST changes: +FERR325T18 PO; +IBUP-844 PO
[2021-09-26 08:53] LABS: ALBUMIN 4.4 GM/DL (3.2-4.5); BILIRUBIN,TOTAL 0.8 MG/DL (0.1-1.0); CREATININE SERUM 0.63 MG/DL (0.60-1.30); TOTAL PROTEIN 6.9 GM/DL (6.4-8.2)
[2021-09-26 12:10] LABS: TRIGLYCERIDES 45 MG/DL (<150); VLDL CHOLESTEROL 9 MG/DL (5-40)
[2021-09-26 12:15] LABS: CHOLESTEROL 145 MG/DL (< 200)
[2021-09-26 12:16] LABS: HDL CHOLESTEROL 52 MG/DL (40-60)
== END ==
LOC: LAB FS 08:14
PROVIDERS: ATTEND Registered Nurse Emergency
DX: Z00.00 Encounter for general adult medical examination without abnormal findings (principal); G44.40 Drug-induced headache, not elsewhere classified, not intractable; L98.8 Other specified disorders of the skin and subcutaneous tissue
CPT/HCPCS: 36415; 80053; 80061

== ENCOUNTER → 2022-06-10 | Outpatient (CLI) | payer OTHER ==
--- NOTE | 2022-06-10 14:48 | Diagnostic Imaging Report ---
INDICATION: Displaced fracture of the index finger. Pain EXAMINATION: Left 2nd finger 06/10/2022 FINDINGS: 3 views of the 2nd digit There is a well-corticated osseous fragment abutting the tuft of the distal 2nd phalanx. This appears chronic. Correlate with timing of injury. No prior imaging is available for comparison. Remaining visualized osseous structures intact. No dislocations. IMPRESSION: 1. Chronic appearing fracture at the tuft of the 2nd distal phalanx. Dictated by: Dictated on workstation # [id number]
== END ==
LOC: RAD FS 10:48
PROVIDERS: ATTEND Nurse Practitioner
DX: S62.631D Displaced fracture of distal phalanx of left index finger, subsequent encounter for fracture with routine healing (principal); X58.XXXD Exposure to other specified factors, subsequent encounter
CPT/HCPCS: 73140